=== PATIENT | male | born 1970 | race American Indian/Alaskan Native ===

== ENCOUNTER 2020-03-10 17:46 | Emergency (ER) | payer MEDICARE ==
[2020-03-10 17:55] VITALS: BP 142/102
--- NOTE | 2020-03-10 19:30 | Emergency Department Report ---
Chief Complaint: Medical Clearance Stated Complaint: MED REFILL Time Seen by Provider: 03/10/20 19:20 - HPI History of Present Illness: 49-year-old -[place] male patient presents with complaints of needing a medication refill for his amlodipine and lisinopril x today. Patient states he ran to his medications yesterday due to being forced to cut ties with his current primary care provider. Patient states he is currently unable to find a primary care provider. He denies any chest pain, shortness of breath, headache, numbness/tingling/weakness in his limbs, or other complaints. - Exam Vital Signs: Vital Signs 03/10/20 17:51 Temperature 98.5 F Pulse Rate 91 H Respiratory 18 Rate Blood Pressure 142/102 [Right] O2 Sat by Pulse 97 Oximetry MSE screening note: Focused history and physical exam performed. Due to findings the following was ordered: ED Medical Decision Making - Medical Decision Making Patient here for medication refill today due to no longer having a PCP. Vitals are stable and he denies any current symptoms. Patient states he has been taking his medications for many years. Meds refilled. Patient provided with [facility]'s information. He is well-appearing and stable for discharge home. Strict return precautions were discussed in detail with patient who verbalized understanding ED Disposition for MSE Clinical Impression: Encounter for medication refill Disposition: DC-01 TO HOME OR SELFCARE Is pt being admited?: No Condition: Stable Instructions: Hypertension (ED) Prescriptions: amLODIPine 10 mg PO DAILY 30 Days #30 tab lisinopriL [Zestril TAB] 10 mg PO QDAY 30 Days #30 tablet Referrals: [facility] [Provider Group] - 3-5 Days ED Physical Exam - General Limitations: No Limitations General appearance: alert, in no apparent distress - Head Head exam: Present: atraumatic, normocephalic - Eye Eye exam: Present: normal appearance. Absent: scleral icterus - Respiratory Respiratory exam: Present: normal lung sounds bilaterally. Absent: respiratory distress - Cardiovascular Cardiovascular Exam: Present: regular rate, normal rhythm. Absent: systolic murmur, diastolic murmur, rubs, gallop - Neurological Exam Neurological exam: Present: alert, oriented X3, normal gait - Psychiatric Psychiatric exam: Present: normal affect, normal mood - Skin Skin exam: Present: warm, dry, intact, normal color. Absent: rash ED Review of Systems ROS: Stated complaint: MED REFILL Other details as noted in HPI Constitutional: denies: chills, fever Eyes: denies: vision change Respiratory: denies: SOB with exertion Cardiovascular: denies: chest pain Neurological: denies: headache, numbness, paresthesias, confusion, abnormal gait
== END 2020-03-10 19:55 | disposition home or self-care (01) ==
LOC: ED 17:46
DX: I10 Essential (primary) hypertension (principal); Z76.0 Encounter for issue of repeat prescription; Z88.0 Allergy status to penicillin
CPT/HCPCS: 99281

== ENCOUNTER 2021-01-30 18:04 | Emergency (ER) | payer MEDICARE ==
[2021-01-30 20:23] VITALS: BP 199/127
--- NOTE | 2021-01-30 20:28 | Emergency Department Report ---
ED General Adult HPI - General Stated complaint: LEFT FOOT HAS SORES, ELEVATED BP Time Seen by Provider: 01/30/21 20:15 Source: patient Mode of arrival: Ambulatory Limitations: No Limitations - History of Present Illness Initial comments: Patient is a 50-year-old male presents emergency room with complaints of a rash to the left foot that began approximately 2 weeks ago. He states that it is itching, burning, scaling. He denies any fall or injury. He denies any purulent drainage, fever, nausea, vomiting, diarrhea. Patient states that he also has a history of hypertension and has been out of his blood pressure medication for 2 weeks. He reports that his primary care doctor moved out of the state and he needs a new primary care physician. He has an allergy to penicillin. - Related Data Previous Rx's Medication Instructions Recorded Last Taken Type lisinopriL [Zestril TAB] 10 mg PO QDAY 30 Days #30 tablet 03/10/20 Unknown Rx Ketoconazole 2% [Nizoral] 1 applicatio TP QDAY #1 tube 01/30/21 Unknown Rx amLODIPine 10 mg PO DAILY 30 Days #30 tab 01/30/21 Unknown Rx Allergies Allergy/AdvReac Type Severity Reaction Status Date / Time Penicillins Allergy Hives Verified 03/10/20 17:50 ED Review of Systems ROS: Stated complaint: LEFT FOOT HAS SORES, ELEVATED BP Other details as noted in HPI Comment: All other systems reviewed and negative ED Past Medical Hx - Past Medical History Hx Hypertension: Yes Hx Heart Attack/AMI: Yes Additional medical history: Heart attack with 3 heart cath - Surgical History Additional Surgical History: Spinal fusion, Heart caths - Social History Smoking Status: Never Smoker Substance Use Type: None - Medications Home Medications: Home Medications Medication Instructions Recorded Confirmed Last Taken Type lisinopriL [Zestril TAB] 10 mg PO QDAY 30 Days #30 tablet 03/10/20 Unknown Rx Ketoconazole 2% [Nizoral] 1 applicatio TP QDAY #1 tube 01/30/21 Unknown Rx amLODIPine 10 mg PO DAILY 30 Days #30 tab 01/30/21 Unknown Rx ED Physical Exam - General Limitations: No Limitations General appearance: alert, in no apparent distress - Head Head exam: Present: atraumatic, normocephalic - Eye Eye exam: Present: normal appearance - ENT ENT exam: Present: mucous membranes moist - Respiratory Respiratory exam: Absent: respiratory distress, accessory muscle use - Neurological Exam Neurological exam: Present: alert, oriented X3 - Psychiatric Psychiatric exam: Present: normal affect, normal mood - Skin Skin exam: Present: other (erythema with scaling present in the webs of the toes of the left foot, no ulceration, no induration or fluctuance, FROM of the LLE, neurovascularly intact) ED Course Vital Signs 01/30/21 19:56 Temperature 98.3 F Pulse Rate 64 Respiratory 18 Rate Blood Pressure 199/127 O2 Sat by Pulse 99 Oximetry ED Medical Decision Making - Lab Data Vital Signs 01/30/21 19:56 Temperature 98.3 F Pulse Rate 64 Respiratory 18 Rate Blood Pressure 199/127 O2 Sat by Pulse 99 Oximetry - Medical Decision Making Patient is a 50-year-old male presents emergency room with complaints of a rash to the left foot that began approximately 2 weeks ago. He states that it is itching, burning, scaling. He denies any fall or injury. He denies any purulent drainage, fever, nausea, vomiting, diarrhea. Patient states that he also has a history of hypertension and has been out of his blood pressure medication for 2 weeks. He reports that his primary care doctor moved out of the state and he needs a new primary care physician. He has an allergy to penicillin. Vitals with elevated blood pressure secondary to patient not taking his medication for 1 month, otherwise vitals are stable, patient only given a refill of his home medication, discussed the importance of primary care follow- up. On exam: erythema with scaling present in the webs of the toes of the left foot, no ulceration, no induration or fluctuance, FROM of the LLE, neurovascularly intact. Examination appears consistent with tinea pedis. Patient given prescr iption for medication. Advised patient Please use medication as prescribed. Please take your blood pressure medication. Increase your water intake. Eat a low-sodium diet. Please keep a blood pressure log and take this to your primary care doctor. Follow-up with your primary care doctor. Follow-up with a slag dumper Dr. Pichardo. Return to emergency room for any new or worsened symptoms. Critical care attestation.: If time is entered above; I have spent that time in minutes in the direct care of this critically ill patient, excluding procedure time. ED Disposition Clinical Impression: Elevated blood pressure reading, Non compliance w medication regimen Tinea pedis Qualifiers: Laterality: left Qualified Code(s): B35.3 - Tinea pedis Disposition: DC-01 TO HOME OR SELFCARE Is pt being admited?: No Does the pt Need Aspirin: No Condition: Stable Instructions: Athlete's Foot, [id number]-ty-Cekn, Managing Your Hypertension Additional Instructions: Please use medication as prescribed. Please take your blood pressure medication. Increase your water intake. Eat a low-sodium diet. Please keep a blood pressure log and take this to your primary care doctor. Follow-up with your primary care doctor. Follow-up with a slag dumper Dr. Pichardo. Return to emergency room for any new or worsened symptoms. Prescriptions: amLODIPine 10 mg PO DAILY 30 Days #30 tab Ketoconazole 2% [Nizoral] 1 applicatio TP QDAY #1 tube Referrals: PETR BRAR MD [Staff Physician] - 2-3 Days [facility] [Provider Group] - 2-3 Days LUCIA NINO MD [Staff Physician] - 2-3 Days BRISEYDA JAMESON MD [Staff Physician] - 2-3 Days WADR PICHARDO DPM [Staff Physician] - 2-3 Days (podiatry) Time of Disposition: 20:25 Print Language: NIUEAN
== END 2021-01-30 20:30 | disposition home or self-care (01) ==
LOC: ED 18:04
DX: B35.3 Tinea pedis (principal); Z91.14 Patient's other noncompliance with medication regimen; I10 Essential (primary) hypertension; I25.2 Old myocardial infarction; Z98.890 Other specified postprocedural states; Z79.899 Other long term (current) drug therapy; Z88.0 Allergy status to penicillin
CPT/HCPCS: 99281

== ENCOUNTER 2021-02-04 13:19 | Outpatient (CLI) | payer MEDICARE ==
--- NOTE | 2021-02-04 14:01 | XRay Report ---
CERVICAL SPINE 3 VIEWS INDICATION / CLINICAL INFORMATION: CERVICAL VERTEBRAL FUSION. COMPARISON: None available. FINDINGS: Anterior fusion from C4 to C6. Mild degenerative change at C3-4 and C6-7. No other significant skelet al abnormality. Alignment is normal. Signer Name: Ha Long MD FACBilly Signed: 02/04/2021 1:56 PM Workstation Name: [id number]
== END 2021-02-04 13:20 | disposition home or self-care (01) ==
LOC: XRAY 13:19
PROVIDERS: ATTEND Nurse Practitioner Family
DX: M47.812 Spondylosis without myelopathy or radiculopathy, cervical region (principal); M43.22 Fusion of spine, cervical region
CPT/HCPCS: 72040